=== PATIENT | male | born 1985 | race Caucasian/White ===

== ENCOUNTER 2017-11-06 16:18 | Emergency (ER) | payer OTHER ==
[~2017-11-06] VITALS: Ht 185.4 cm; Wt 72.6 kg
[2017-11-06] MEDS ORDERED: IBUPROFEN 800800 M1 PO (18:08)
[2017-11-06 18:22] VITALS: BP 115/80
== END 2017-11-06 18:23 | disposition home or self-care (01) ==
LOC: M.ERS 16:18
DX: S90.121A Contusion of right lesser toe(s) without damage to nail, initial encounter (principal); L84 Corns and callosities; Z88.2 Allergy status to sulfonamides; W20.8XXA Other cause of strike by thrown, projected or falling object, initial encounter; Y93.89 Activity, other specified; Y92.89 Other specified places as the place of occurrence of the external cause; Y99.8 Other external cause status